=== PATIENT | male | born 1995 | race Caucasian/White ===

== ENCOUNTER 2024-05-30 20:36 | Emergency (ER) | payer SELFPAY ==
[2024-05-30] VITALS (12 sets, daily range): BP systolic 123–150; BP diastolic 79–93; PULSE 71–128; TEMP 36.9; O2SAT 99–100; BMI 23.7
--- NOTE | 2024-05-30 20:56 | XR_ITS ---
[address] [address] Patient Name: HAYLEY ESPINOZA MRN: [id number] date: 1995 Sex: M Assigned Patient Location: ER Current Patient Location: ED.MAIN Accession/Order Number: [id number] Exam Date: 05/30/2024 21:04 Report Date: 05/30/2024 22:33 At the request of: LAURENCE ADKINS Procedure: XR chest 1V EXAMINATION: XR chest 1V, , 05/30/2024 9:04 PM EDT INDICATION: SOB HISTORY: Ordering Provider Reason for Exam: SOB Technologist Note: Additional: COMPARISON: None. TECHNIQUE: Chest x-ray: One view. FINDINGS: No pneumothorax, pleural effusion or focal airspace consolidation. Heart is normal in size. Bony thorax is unremarkable. XR/XR chest 1V IMPRESSION: No acute cardiopulmonary process. Electronically authenticated by: CATRACHO SOOD Date: 05/30/2024 22:33
--- NOTE | 2024-05-30 20:56 | ECG_ITS ---
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
--- NOTE | 2024-05-30 20:58 | ED_ITS ---
HPI HPI - General Adult General Chief complaint: Anxiety Stated complaint: Anxiety Time Seen by Provider: 05/30/24 20:40 Source: patient Mode of arrival: walk-in Limitations: no limitations History of Present Illness HPI narrative: Patient is a 28-year-old male presents to the ER with concerns of chest pain and shortness of breath. Patient admits to history of anxiety, states his last pa leonora attack was in 2013. Patient states at 4 PM today he became short of breath experiencing chest pain which has since subsided but he remains feeling anxious and short of breath, tingling in all 4 extremities. Patient admits to marijuana use occasionally to manage his stress. He denies taking any medications or other drugs. Patient reports getting off work at 2 AM and then his mother leaves for work at 4 AM, and he then has to take care of a 1-year-old child which has led to multiple sleepless nights in the preceding weeks. Patient sitting up, appears anxious but alert and oriented x 4 with a GCS of 15. He denies any suicidal or homicidal ideations. Onset (ago): hour(s) (5) Severity: moderate Relieving factors: Reports none Associated symptoms: Reports chest pain and shortness of breath Related Data Home Medications ?Medication ?Instructions ?Recorded ?Confirmed No Known Home Medications 05/30/24 05/30/24 Allergies Allergy/AdvReac Type Severity Reaction Status Date / Time No Known Drug Allergies Allergy Verified 05/30/24 20:53 Opioid HPI Opioid Management Most Recent Opioid Data: No Data to Display Exam Narrative Exam Narrative: Nurses note and vital signs reviewed and patient is not hypoxic. General: The patient appears anxious, denies suicidal or homicidal ideation. Skin: Warm, dry, no pallor noted. There is no rash noted. Head: Normocephalic, atraumatic Eye: Normal conjunctiva, no drainage, EOMI. PERRL Ears, Nose, Mouth, and Throat: External exam unremarkable Cardiovascular: Tachycardic Respiratory: Patient is in no distress, no accessory muscle use, lungs are eduarda r to auscultation, no wheezing, rales or rhonchi Back: non-tender, no CVA tenderness bilaterally to percussion. GI: Normal bowel sounds, no tenderness to palpation, no masses appreciated. No rebound, guarding, or rigidity noted. Musculoskeletal: The patient has no evidence of calf tenderness, no pitting edema, symmetrical pulses noted bilaterally Neurological: A&O x4, normal speech Psychiatric: Cooperative, but anxious. Constitutional Vital Signs, click to edit/add: Last Vital Signs Temp 98.4 F 05/30/24 20:49 Pulse 84 05/30/24 21:30 Resp 17 05/30/24 21:30 BP 123/81 05/30/24 21:28 Pulse Ox 99 05/30/24 21:30 O2 Del Method Room Air 05/30/24 20:49 Course Vital Signs Vital signs: Vital Signs Temperature 98.4 F 05/30/24 20:49 Pulse Rate 120 H 05/30/24 20:49 Respiratory Rate 20 05/30/24 20:49 Blood Pressure 150/93 H 05/30/24 20:49 Pulse Oximetry 99 05/30/24 20:49 Oxygen Delivery Method Room Air 05/30/24 20:49 Temperature 98.4 F 05/30/24 20:49 Pulse Rate 84 05/30/24 21:30 Respiratory Rate 17 05/30/24 21:30 Blood Pressure 123/81 05/30/24 21:28 Pulse Oximetry 99 05/30/24 21:30 Oxygen Delivery Method Room Air 05/30/24 20:49 Medical Decision Making MDM Narrative Medical decision making narrative: Patient received 0.5 mg p.o. Ativan, IV fluids. Patient's heart rate improved significantly down to 80 bpm. His blood pressure also improved. Labs discussed, normal TSH, D-dimer. Patient chest x-ray appears clear. Patient admits that he has been dealing with anxiety for some time, but did not have an episode this severe until this evening. We recommend that he participate in counseling and admits he has been considering this as he attends his girlfriends counseling sessions. Patient willing to speak with counselor over the phone and will set up outpatient counseling session The patient is to followup with primary care physician in next 2-3 days or to return to the emergency department should any of the signs or symptoms worsen or new symptoms develop. Patient had questions answered. The patient agrees with the following Diagnosis and Treatment plan and the patient will be discharged home. SHARED APC VISIT, PHYSICIAN ATTESTATION: [id number] I performed a substantive part of the MDM during the patient?s E/M visit. I personally evaluated and examined the patient. I personally made or approved the documented management plan and acknowledge its risk of complications. My (EKG/X-Ray/US/CT) interpretation . Management/test interpretation discussed with . Lab Data Lab results reviewed: Yes I reviewed the patient's lab results Labs: Lab Results 05/30/24 Range/Units 21:03 WBC 6.5 (4.0-11.0) 10^3/uL RBC 5.07 (4.70-6.10) 10^6/uL Hgb 16.1 (14.0-18.0) g/dL Hct 46.1 (42.0-54.0) % MCV 90.9 (80.0-94.0) fL MCH 31.8 (25.9-34.0) pg MCHC 34.9 (29.9-35.2) g/dL RDW 12.6 (11.0-15.0) % Plt Count 274 (150-450) 10^3/uL MPV 8.3 L (9.5-13.5) fL Neut % (Auto) 57.4 (43.0-75.0) % Lymph % (Auto) 31.2 (20.5-60.0) % [place] % (Auto) 10.3 (1.7-12.0) % Eos % (Auto) 0.3 L (0.9-7.0) % Baso % (Auto) 0.6 (0.2-2.0) % Neut # (Auto) 3.8 (1.4-6.5) 10^3/uL Lymph # (Auto) 2.0 (1.2-3.8) 10^3/uL [place] # (Auto) 0.7 (0.3-0.8) 10^3/uL Eos # (Auto) 0.0 (0.0-0.7) 10^3/uL Baso # (Auto) 0.0 (0.0-0.1) 10^3/uL Abs Immat Gran (auto) 0.01 (0.00-0.03) 10^3/uL Imm/Tot Granulo (auto) 0.2 (0.0-0.5) % D-Dimer <0.19 (<=0.59) mg/L FEU Sodium 136 (136-145) mmol/L Potassium 3.3 L (3.5-5.1) mmol/L Chloride 100 (98-107) mmol/L Carbon Dioxide 25.8 (21.0-32.0) mmol/L Anion Gap 13.5 BUN 10.0 (7.0-18.0) mg/dL Creatinine 0.87 (0.70-1.30) mg/dL Est GFR ( Amer) >60 (>=60) Est GFR (Non-Af Amer) >60 (>=60) BUN/Creatinine Ratio 11.5 Glucose 102 (74-106) mg/dL Calcium 9.5 (8.5-10.1) mg/dL Total Bilirubin 1.3 H (0.2-1.0) mg/dL AST 18 (15-37) U/L ALT 26 (16-63) U/L Alkaline Phosphatase 79 (46-116) U/L Troponin I High Sens <4.0 L (4.0-76.1) pg/mL Total Protein 8.2 (6.4-8.2) g/dL Albumin 4.8 (3.4-5.0) g/dL Globulin 3.4 g/dL Albumin/Globulin Ratio 1.4 TSH & Free T4 Interp 1.509 (0.358-3.740) uIU/mL Imaging Data Chest x-ray: Attestation: I personally reviewed and interpreted this imaging study as follows: My impression: no pneumothorax, no acute infiltrate. ECG Data Attestation: I personally reviewed and interpreted this ECG as follows: Interpretation: EKG interpretation: Emergency Department physician interpretation, sinus tachycardia 104 bpm., no ectopy, no ST segment elevation, normal axis. Discharge Plan Discharge Stand Alone Forms: Portal Instructions Chief Complaint: Anxiety Clinical Impression: Acute anxiety, SOB (shortness of breath) Patient Disposition: Home, Self-Care Time of Disposition Decision: 21:53 Condition: Good Prescriptions / Home Meds: No Action No Known Home Medications Print Language: Sami Instructions: Anxiety (ED) Additional Instructions: [facility] and [facility]: [phone] [place] call for counseling appt: Hope yunior 8am to Midnight daily- [phone] Referrals: FAMILY,HEALTH SER [Physician] - As soon as possible Physician,Non-Staff, MD [Primary Care Provider] - 1 week
[2024-05-30 21:17] LABS: Basophils Percent Auto 0.6 % (0.2-2.0); Eosinophils Percent Auto 0.3 % (0.9-7.0); Hematocrit 46.1 % (42.0-54.0); Hemoglobin 16.1 g/dL (14.0-18.0); Immature Granulocytes Abs Auto 0.01 10^3/uL (0.00-0.03); Immature Granulocytes Pct Auto 0.2 % (0.0-0.5); Lymphocytes Percent Auto 31.2 % (20.5-60.0); Mean Corpuscular HGB Conc 34.9 g/dL (29.9-35.2); Mean Corpuscular Hemoglobin 31.8 pg (25.9-34.0); Mean Corpuscular Volume 90.9 fL (80.0-94.0); Mean Platelet Volume 8.3 fL (9.5-13.5); Monocytes Absolute Auto 0.7 10^3/uL (0.3-0.8); Monocytes Percent Auto 10.3 % (1.7-12.0); Neutrophils Absolute Auto 3.8 10^3/uL (1.4-6.5); Neutrophils Percent Auto 57.4 % (43.0-75.0); Platelet Count 274 10^3/uL (150-450); Red Blood Count 5.07 10^6/uL (4.70-6.10); Red Cell Distribution Width 12.6 % (11.0-15.0); White Blood Count 6.5 10^3/uL (4.0-11.0)
[2024-05-30] MEDS: LORAZEPAM 0.5 MG TABLET PO (21:28)
[2024-05-30] MEDS: 0.9 % SODIUM CHLORIDE 1,000 ML 999 ML IV (21:28)
[2024-05-30 21:32] LABS: D Dimer <0.19 mg/L FEU (<=0.59)
[2024-05-30 21:36] LABS: Alanine Aminotransferase 26 U/L (16-63); Albumin Globulin Ratio 1.4; Albumin Level 4.8 g/dL (3.4-5.0); Alkaline Phosphatase 79 U/L (46-116); Anion Gap 13.5; Aspartate Amino Transferase 18 U/L (15-37); BUN Creatinine Ratio 11.5; Bilirubin Total 1.3 mg/dL (0.2-1.0); Calcium 9.5 mg/dL (8.5-10.1); Carbon Dioxide 25.8 mmol/L (21.0-32.0); Chloride 100 mmol/L (98-107); Estimated GFR (African America >60 (>=60); Estimated GFR (Non-African Ame >60 (>=60); Globulin 3.4 g/dL; Glucose 102 mg/dL (74-106); Potassium 3.3 mmol/L (3.5-5.1); Sodium 136 mmol/L (136-145); Total Protein 8.2 g/dL (6.4-8.2)
[2024-05-30 21:39] LABS: Troponin I High Sensitivity <4.0 pg/mL (4.0-76.1)
[2024-05-30 21:44] LABS: TSH W/ REFLEX FT4 1.509 uIU/mL (0.358-3.740)
== END 2024-05-30 22:35 | disposition home or self-care (01) ==
PROVIDERS: Personal Emergency Response Attendant; Emergency Provider Emergency Medicine
DX: F41.9 Anxiety disorder, unspecified (principal); R06.02 Shortness of breath
CPT/HCPCS: 36415; 71045; 80053; 80307; 84443; 84484; 85025; 85378; 93005; 99285

== ENCOUNTER 2024-07-10 13:50 | Emergency (ER) | payer SELFPAY ==
[2024-07-10 13:55] VITALS: BP 168/81; PULSE 83; TEMP 36.8; O2SAT 99; BMI 23.0
--- OUTSIDE RECORDS SUMMARY | 2024-07-10 13:58 | XMS_ITS | CCD ---
Author Organization [facility] Inform ion [facility] Care Team Providers Care Medical Insurance Biller Name Role Phone REQUEST, NONE LISTED Primary Care Unavailable DAYSI MENDOZA Admitting Unavailable STRUS, DAYSI Attending Unavailable STRDAYSI VILLASEÑOR Consulting Unavailable Aurea Mota Unavailable Problems Problem Classification Problem Date Documented Date Episodic/Chronic Complications of surgical procedures or medical care (3 sources) Postprocedural hemorrhage of a digestive system organ or structure following a digestive system procedure; Translations: [POSTPROC HEM DS ORG/STR FLW DS PROC] Onset: 08-28-2019 Episodic Disorders of teeth and jaw (1 source) Alveolitis of jaws; Translations: [ALVEOLITIS OF JAWS] Onset: 08-31-2019 Episodic Essential hypertension (1 source) Essential (primary) hypertension; Translations: [ESSENTIAL PRIMARY HYPERTENSION] Onset: 08-31-2019 Chronic Genitourinary symptoms and ill-defined conditions (2 sources) Dysuria; Translations: [Dysuria] Onset: 01-31-2022 Resolved: 01-31-2022 Episodic Substance-related disorders (1 source) Nicotine dependence, cigarettes, uncomplicated; Translations: [NICOTINE DEPEND CIGARETTES UNCOMP] Onset: 08-31-2019 Chronic Results Test Name Value Interpretation Reference Range Facil ity Chlamydia/GC/Trich NAAon Chlamydia Trachomotis, STAN Positive Critically abnormal Negative [facility] Comment on above: Order Comment: Reaso n for Exam Dysuria Performed By: #### G CCHLAMTRI #### [facility] , Neisseria Gonorrhoeae, STAN Negative Normal Negative [facility] Comment on above: Order Comment: Reaso n for Exam Dysuria Performed By: #### G CCHLAMTRI #### [facility] , Trichomonas STAN Negative Normal Negative [facility] Comment on above: Order Comment: Reaso n for Exam Dysuria Result Comment: Perf ormed at: =G - [facility] [address] [place] [id number] Machine Rope Maker: Marnie Guido MD, Phone: [phone] PERFORMED BY: [facility] [place] [address] PATHOLOGIST MANAGER TRANSFER DEREK CURRY M.D. Performed By: #### G CCHLAMTRI #### [facility] , Vital Signs Date Time Vital Sign Value Performing Clinician Facility 01-31-2022 13:25-0400 Body height 182.88 cm Aurea Svetlana Other [facility] Other 01-31-2022 13:25-0400 Body mass index (BMI) [Ratio] 23.87 kg/m2 Aurea Svetlana Other [facility] Other 01-31-2022 13:25-0400 Body temperature 98 [degF] Aurea Svetlana Other [facility] Other 01-31-2022 13:25-0400 Body weight 79.83 kg Aurea Svetlana Other [facility] Other 01-31-2022 13:25-0400 Diastolic blood pressure 76 mm[Hg] Aurea Svetlana Other [facility] Other 01-31-2022 13:25-0400 Respiratory rate 18 /min Aurea Svetlana Other [facility] Other 01-31-2022 13:25-0400 SaO2% (BldA) [Mass fraction] 99 % Aurea Mota Other [facility] Other 01-31-2022 13:25-0400 Systolic blood pressure 134 mm[Hg] Aurea Mota Other [facility] Other Encounters Encounter Date Encounter Type Care Provider Facility Start: 01-31-2022 End: 01-31-2022 ambulatory Aurea Mota Other [employer] [facility] Other Start: 01-31-2022 Office outpatient ne w 20 minutes Aurea Mota [facility] Start: 08-28-2019 End: 08-28-2019 Patient encounter procedure NONE LISTED REQUEST Facility: Payers Date Payer Category Payer Unknown [id number] 1959 Self-pay Social History Date Type Detail Facility Sex Assigned At [facility] Other Evaluation note 01-31-2022 Note Date & Type Note Facility 01-31-2022 Evaluation note Encounter Date Diagnosis Assessment Notes Jan, Dysuria (ICD-10 - R30.0) Drink plenty fluids, get plenty of rest. Always use condoms. No intercourse until you receive your results. Follow-up with your family physician if no improvement in 2 to 3 days. Patient chooses to await the results of his test prior to receiving treatment. [facility] Other Summary Purpose Family History No Family History Records FoundNo Family History Records Found Advance Directives No Advanced Directives Records FoundNo Advanced Directives Records Found Additional Source Comments (unrecognized sect ion and content) No Status Records FoundNo Status Records Found INFORMATION SOURCE (unrecogn ized section and content) DATE CREATED AUTHOR 08/31/2019 [facility] DATE CREATED AUTHOR 'S WANDA TINOCO 02/08/2022 [facility] REASON FOR VISIT (unrecogniz ed section and content) DYSURIA FOR RECORDS PERTAINING TO PATIENTS WHO ARE OR HAVE BEEN ENROLLED IN A CHEMICAL DEPENDENCY/SUBSTANCEABUSE PROGRAM, SOME INFORMATION MAY BE OMITTED. This clinical summary was aggregated from multiple sources. Caution should be exercised in using it in the provision of clinical care. This summary normalizes information from multiple sources, and as a consequence, information in this document may materially change the coding, format and clinical context of patient data. In addition, data may be omitted in some cases. CLINICAL DECISIONS SHOULD BE BASED ON THE PRIMARY CLINICAL RECORDS. [facility]. provides no warranty or guarantee of the accuracy or completeness of information in this document.
--- NOTE | 2024-07-10 14:15 | ED_ITS ---
HPI - Dental/Oral General Chief complaint: Dental/Oral Stated complaint: TOOTHACHE Time Seen by Provider: 07/10/24 14:05 Source: patient Mode of arrival: walk-in Limitations: no limitations History of Present Illness HPI Narrative: The patient presented to us with a dental pain for the last few days, he was not able to get to any dentist over the weekend he mentioned that he always have dental issues before Related Data Home Medications ?Medication ?Instructions ?Recorded ?Confirmed No Known Home Medications 05/30/24 05/30/24 Previous Rx's ?Medication ?Instructions ?Recorded amoxicillin 875 mg-potassium 1 tab PO Q12H #14 tabs 07/10/24 clavulanate 125 mg tablet ibuprofen 600 mg tablet 600 mg PO Q8H PRN pain #20 tabs 07/10/24 Allergies Allergy/AdvReac Type Severity Reaction Status Date / Time No Known Drug Allergies Allergy Verified 05/30/24 20:53 Review of Systems ROS Status of ROS 10 or more systems reviewed and unremark able except as noted in history and below PFSH PFSH Social History Little interest or pleasure in doing things: not at all Feeling down, depressed, or hopeless: not at all Exam Narrative Exam Narrative: Nurses notes and vital signs reviewed and patient is not hypoxic. Dental: The patient have multiple decayed tooth and he is pointing to the tooth #19 as it is inflamed at the base with the gum right The patient have multiple decayed tooth including the tooth #20 and 21 on the same side The patient have a poor dental hygiene General: Well-appearing and in no apparent distress. Skin: Warm, dry, no pallor noted. No rash. Head: Normocephalic, atraumatic. Neck: Supple, non-tender. Eye: Pupils are equal, round and EOMI. No scleral icterus. Ears, Nose, Mouth, and Throat: TM are clear, no nasal mucosal hypertrophy. Oral mucosa is moist, no posterior oropharynx erythema, uvula is mid-line Cardiovascular: Regular Rate and Rhythm without murmur, gallop or rub. Respiratory: No accessory muscle use or respiratory distress. Lungs are clear to auscultation, no wheezing, rales or rhonchi Chest Wall: no tenderness Back: No midline thoracic or lumbar vertebral tenderness. No CVA tenderness Musculoskeletal: normal ROM, no calf or popliteal tenderness, no lower extremity edema/swelling GI: Abdomen is soft, non-distended. Normal bowel sounds. No masses appreciated. No tenderness to palpation. No rebound, guarding, or rigidity noted. Neurological: A&O x4. No cranial nerve dysfunction observed. No truncal ataxia. Moves all extremities. Sensation intact. Psychiatric: Cooperative and interactive. Normal mood and affect. Constitutional Vital Signs, click to edit/add: Last Vital Signs Temp 98.3 F 07/10/24 13:55 Pulse 83 07/10/24 13:55 Resp 16 07/10/24 13:55 BP 168/81 H 07/10/24 13:55 Pulse Ox 99 07/10/24 13:55 O2 Del Method Room Air 07/10/24 13:55 Course Vital Signs Vital signs: Vital Signs Temperature 98.3 F 07/10/24 13:55 Pulse Rate 83 07/10/24 13:55 Respiratory Rate 16 07/10/24 13:55 Blood Pressure 168/81 H 07/10/24 13:55 Pulse Oximetry 99 07/10/24 13:55 Oxygen Delivery Method Room Air 07/10/24 13:55 Temperature 98.3 F 07/10/24 13:55 Pulse Rate 83 07/10/24 13:55 Respiratory Rate 16 07/10/24 13:55 Blood Pressure 168/81 H 07/10/24 13:55 Pulse Oximetry 99 07/10/24 13:55 Oxygen Delivery Method Room Air 07/10/24 13:55 MDM - Dental/Oral MDM Narrative Medical decision making narrative: The patient presented to us with a dental pain mostly secondary to dental infection he was started on local dental pain management Also just started on Augmentin and discharged with ibuprofen and Augmentin Patient referred to the dentist with outpatient The patient is to follow up with primary care physician in next 2-3 days or to return to the emergency department should any of the signs or symptoms worsen or new symptoms develop. The patient agrees with the following Diagnosis and Treatment plan and the patient will be discharged home. Discharge Plan Discharge Chief Complaint: Dental/Oral Clinical Impression: Dental abscess Patient Disposition: Home, Self-Care Time of Disposition Decision: 14:14 Condition: Good Prescriptions / Home Meds: New amoxicillin-pot clavulanate 875-125 mg tablet 1 tab PO Q12H Qty: 14 0RF ibuprofen 600 mg tablet 600 mg PO Q8H PRN (Reason: pain) Qty: 20 0RF No Action No Known Home Medications Print Language: Slovak Instructions: Dental Abscess (ED) Referrals: Physician,Non-Staff, MD [Primary Care Provider] - 1 week
[2024-07-10] MEDS: BENZOCAINE 30 ML, lidocaine HCL 15 ML MM (14:27)
[2024-07-10] MEDS: AMOXICILLIN/POT CLAV 875-125 MG TABLET 1 TAB PO (14:27)
== END 2024-07-10 14:32 | disposition home or self-care (01) ==
PROVIDERS: Emergency Provider Emergency Medicine
DX: K04.7 Periapical abscess without sinus (principal)
CPT/HCPCS: 99283

== ENCOUNTER 2024-12-02 22:28 | Emergency (ER) | payer SELFPAY ==
[2024-12-02 22:32] VITALS: BP 143/87; PULSE 95; TEMP 37; O2SAT 100; BMI 19.7
--- NOTE | 2024-12-02 22:33 | ED.GENADUL1 ---
HPI HPI - General Adult General Chief complaint: Dental/Oral Stated complaint: ORAL PAIN Time Seen by Provider: 12/02/24 22:31 History of Present Illness HPI narrative: Patient is a 29-year-old male who is presenting to the ER today with chief complaint of acute on chronic dental pain. Patient is having pain to lower teeth of 20, 19, 18, 30, 3. Patient is also having pain to 30-31. Patient has no obvious foul taste, no bad odor in his mouth. Patient has no obvious abscess at this time. Patient denies any type of acute trauma. Patient had small fever last evening, patient has no fever at this time. No nausea or vomiting. Patient works at [employer]. No injury, no trauma. Patient is having more pain to tooth number 19, 18, patient feels like there is fullness and he might be developing another abscess. Patient just received dental insurance from [email or web address] where he works. Patient says he is waiting for taxes to come in before he can make an appointment because he knows that he needs a 5 or 6 teeth extracted. All systems are negative except as noted/marked. All systems reviewed and otherwise negative. Nurses note and vital signs reviewed and patient is not hypoxic. Nurses notes reviewed and patient is noted to be non-hypoxic. General: The patient is comfortable, alert and oriented x3, well appearing, non toxic in no apparent distress. Head: Atraumatic and normocephalic. Eyes: Normal conjunctiva ENT: The oropharynx is normal. No pharyngeal erythema, uvular edema, tonsillar exudates, asymmetry or trismus. Uvula is midline. Mouth is normal to inspection With the exception of a pain on percussion of the tooth # 20, 19, 18, 30, 3 and evidence of multiple chronic dental caries. There is no evidence of facial asymmetry or abscess formation. Floor of the mouth is soft. No tenderness in the submental or submandibular space. No tongue elevation or deviation. The patient has no evidence of periapical abscess, gingivitis, ANUG or other acute pathology. Airway is patent. No signs of Daniel angina. Neck: The neck demonstrates normal range of motion. No meningeals signs are present. No stridor. No masses or lymphandenopathy noted. Respiratory: No acute distress, lungs are clear to auscultation, no wheezing, rhonchi, or rales noted. No stridor or retractions are noted. Cardiovascular: Regular rate and rhythm Skin: The skin exam shows no evidence of rashes Neuro: Alert and oriented x4, normal speech Lymphatic: No cervical lymphadenopathy Related Data Previous Rx's ?Medication ?Instructions ?Recorded penicillin V potassium 500 mg 500 mg PO TID 10 days #30 tabs 12/02/24 tablet Allergies Allergy/AdvReac Type Severity Reaction Status Date / Time No Known Drug Allergies Allergy Verified 12/02/24 22:32 Opioid HPI Opioid Management Most Recent Opioid Data: No Data to Display PFSH PFSH Social History Little interest or pleasure in doing things: not at all Feeling down, depressed, or hopeless: not at all Exam Constitutional Vital Signs, click to edit/add: Last Vital Signs Temp 98.6 F 12/02/24 22:32 Pulse 95 H 12/02/24 22:32 Resp 16 12/02/24 22:32 BP 143/87 H 12/02/24 22:32 Pulse Ox 100 12/02/24 22:32 O2 Del Method Room Air 12/02/24 22:32 Course Vital Signs Vital signs: Vital Signs Temperature 98.6 F 12/02/24 22:32 Pulse Rate 95 H 12/02/24 22:32 Respiratory Rate 16 12/02/24 22:32 Blood Pressure 143/87 H 12/02/24 22:32 Pulse Oximetry 100 12/02/24 22:32 Oxygen Delivery Method Room Air 12/02/24 22:32 Temperature 98.6 F 12/02/24 22:32 Pulse Rate 95 H 12/02/24 22:32 Respiratory Rate 16 12/02/24 22:32 Blood Pressure 143/87 H 12/02/24 22:32 Pulse Oximetry 100 12/02/24 22:32 Oxygen Delivery Method Room Air 12/02/24 22:32 Medical Decision Making MDM Narrative Medical decision making narrative: Patient is very nice and polite, patient was given dental analgesia and a prescription for Pen-Vee K. Patient understands the needs of established with dentist. Patient told me that he was on a wait for his taxes and he just received dental insurance. Patient was told to call now to establish a appointment time, because to be several weeks before he gets into a clinic somewhere. Patient was very thankful for help with dental analgesia and Pen-Vee K was given prophylactically. Patient has multiple areas of dental caries, and patient knows that he needs 5 or 6 teeth extracted. Discharge Plan Discharge Chief Complaint: Dental/Oral Clinical Impression: Toothache, Dental caries, Atypical face pain Patient Disposition: Home, Self-Care Time of Disposition Decision: 22:54 Condition: Fair Prescriptions / Home Meds: New penicillin V potassium 500 mg tablet 500 mg PO TID 10 Days Qty: 30 0RF Print Language: [place] Citizen Instructions: Benzocaine (By mouth), Toothache (ED), Atypical Facial Pain (ED) Additional Instructions: You have multiple areas of dental caries. Multiple teeth need to be extracted as you have mentioned. Dental clinic names and numbers have been given to you. Penicillin has been given to prophylactically. Use one half to one of the cotton balls of dental analgesia every 4-6 hours as needed for pain Work with your insurance to schedule a dentist appointment immediately, it may take several weeks before we can finally get in. Do not wait for your taxes before you make an appointment, you are delaying your appointment time unnecessarily. Referrals: Physician,Non-Staff, MD [Primary Care Provider] - 1 week
--- OUTSIDE RECORDS SUMMARY | 2024-12-02 22:34 | XMS_ITS | CCD ---
Author Organization [facility] Inform ion Partnership [facility] Care Team Providers Care Senior Maintenance Technician Name Role Phone REQUEST, NONE LISTED Primary [...] Chlamydia Trachomotis, STAN Positive Critically abnormal Negative [facility] Comment on above: Order Comment: Reaso n for Exam Dysuria Performed By: #### G CCHLAMTRI #### [facility] , Neisseria Gonorrhoeae, STAN Negative Normal Negative [facility] Comment on above: Order Comment: Reaso n for Exam Dysuria Performed By: #### G CCHLAMTRI #### [facility] , Trichomonas STAN Negative Normal Negative [facility] Comment on above: Order Comment: Reaso n for Exam Dysuria Result Comment: Perf ormed at: =G - [facility] [address] [place] [id number] Chaplaincy: Marnie Guido MD, Phone: [phone] PERFORMED BY: [facility] [place] [address] PATHOLOGIST QUALITY AND RELIABILITY ENGINEER DEREK CURRY M.D. Performed By: #### G CCHLAMTRI #### [facility] , Vital Signs Date Time Vital Sign Value Performing Clinician Facility 01-31-2022 13:25-0400 Body height 182.88 cm Aurea Svetlana Other [facility] Other 01-31-2022 13:25-0400 Body mass index (BMI) [Ratio] 23.87 kg/m2 Aurea Svetlana Other [facility] Other 01-31-2022 13:25-0400 Body temperature 98 [degF] Aurea Svetlana Other [facility] Other 01-31-2022 13:25-0400 Body weight 79.83 kg Aurea Svetlana Other [facility] Other 01-31-2022 13:25-0400 Diastolic blood pressure 76 mm[Hg] Aurea Svetlana Other [facility] Other 01-31-2022 13:25-0400 Respiratory rate 18 /min Aurea Svetlana Other [facility] Other 01-31-2022 13:25-0400 SaO2% (BldA) [Mass fraction] 99 % Aurea Mota Other [facility] Other 01-31-2022 13:25-0400 Systolic blood pressure 134 mm[Hg] Aurea Mota Other [facility] Other Encounters Encounter Date Encounter Type Care Provider Facility Start: 01-31-2022 End: 01-31-2022 ambulatory Aurea Mota Other [facility] Other Start: 01-31-2022 Office outpatient ne w 20 minutes Aurea Mota [facility] Start: 08-28-2019 End: 08-28-2019 Patient encounter procedure NONE LISTED REQUEST Facility: Payers Date Payer Category Payer Unknown [id number] 1959 Self-pay Social History Date Type Detail Facility Sex Assigned At [facility] Other Evaluation note 01-31-2022 Note Date & [...] of his test prior to receiving treatment. [facility] Other Summary Purpose Family History No Family History Records FoundNo Family History Records Found Advance Directives No Advanced Directives Records FoundNo Advanced Directives Records Found Additional Source Comments (unrecognized sect ion and content) No Status Records FoundNo Status Records Found INFORMATION SOURCE (unrecogn ized section and content) DATE CREATED AUTHOR 08/31/2019 [facility] DATE CREATED AUTHOR 'S WANDA TINOCO 02/08/2022 [facility] REASON FOR VISIT (unrecogniz ed section and [...] BE BASED ON THE PRIMARY CLINICAL RECORDS. [facility]. provides no warranty or guarantee of the accuracy or completeness of information in this document.
[2024-12-02] MEDS: BENZOCAINE 30 ML, lidocaine HCL 15 ML MM (23:13)
== END 2024-12-02 23:16 | disposition home or self-care (01) ==
PROVIDERS: Emergency Provider Emergency Medicine
DX: K08.89 Other specified disorders of teeth and supporting structures (principal); K02.9 Dental caries, unspecified
CPT/HCPCS: 99284